=== PATIENT | male | born 1995 | race African-American/Black ===

== ENCOUNTER 2017-05-24 13:12 | Observation (INO) ==
[2017-05-24] MEDS ORDERED: KETOROLAC 30 MG/1 ML VIAL IV STA (14:02)
[2017-05-24] MEDS ORDERED: SODIUM CHLORIDE 0.9% 1,000 ML IV STA (14:02)
[2017-05-24] MEDS ORDERED: ONDANSETRON 4 MG/2 ML VIAL IV STA (14:02)
[2017-05-24] MEDS ORDERED: KETOROLAC 30 MG/1 ML VIAL ONE (14:08)
[2017-05-24] MEDS ORDERED: ONDANSETRON 4 MG/2 ML VIAL ONE (14:09)
[2017-05-24 14:14] LABS: Basophils # 0.1 10*3/uL (0.0-0.2); Basophils % 0.3 % (0.0-0.8); Hematocrit 42.4 VOL% (42.0-52.0); Hemoglobin 15.4 GM/DL (14.0-18.0); Immature Granulocytes % 0.4 %; Immature Granulocytes Absolute 0.08 #; Lymphocytes # 1.5 10*3/uL (1.4-4.0); Lymphocytes % 7.6 % (21.2-54.2); Mean Corpuscular HGB Conc 36.3 GM/DL (32-36); Mean Corpuscular Hemoglobin 30 PG (27-34); Mean Corpuscular Volume 81.9 FL (87-102); Mean Platelet Volume 10.7 FL (9.6-12.0); Monocytes # 1.2 10*3/uL (0.11-0.8); Monocytes % 6.2 % (1.7-12.7); Neutrophils # 16.5 10*3/uL (1.4-7.4); Neutrophils % 85.5 % (38.7-73.9); Platelet Count 246 T/CUMM (130-400); Red Blood Count 5.18 MC/CUMM (3.8-5.5); Red Cell Distribution Width 13.5 % (9.3-17.3); White Blood Count 19.3 T/CUMM (4-12)
[2017-05-24 14:47] LABS: Albumin 4.4 G/DL (3.4-5.0); Bilirubin,Total 0.9 MG/DL (0.2-1.0); Calcium 9.7 MG/DL (8.5-10.1); Osmolality,Calculated 274.7 MOS/KG (273-304); Potassium 4.1 MMOL/L (3.5-5.1); Total Protein 7.9 G/DL (6.4-8.3)
[2017-05-24 15:16] LABS: Apearance,Urine CLEAR (Clear); Bilirubin,Urine Negative (Negative); Blood, Urine Negative (Negative); Glucose,Urine (UA) Negative (Negative); Ketones,Urine 20 mg/dL (Negative); Mucus,Urine Occasional /LPF (Occasional); Nitrite,Urine Negative (Negative); Protein,Urine Negative; RBC,Urine 1 /HPF (0-4); Squamous Epithelial Cell,Urine Occasional /HPF (0-10); Urine Color Yellow (Yellow); Urine Urobilinogen < 2.0 EU/DL (0.2-1.0); WBC,Urine 1 /HPF (0-6)
[2017-05-24] MEDS ORDERED: ONDANSETRON 4 MG/2 ML VIAL IV PRN (16:43)
[2017-05-24] MEDS ORDERED: MORPHINE 2 MG/1 ML SYRINGE IV PRN (16:43)
[2017-05-24] MEDS ORDERED: ACETAMINOPHEN 500 MG TABLET PO PRN (16:45)
[2017-05-24] MEDS: SODIUM CHLORIDE 0.9% 1,000 ML IV SCH (18:17)
[2017-05-24] MEDS: ENOXAPARIN 40 MG/0.4 ML SYRINGE SUBCUT SCH (21:31)
[2017-05-25] MEDS: SODIUM CHLORIDE 0.9% 1,000 ML IV SCH ×3 (02:26→17:22)
[2017-05-25 03:58] LABS: Calcium 8.6 MG/DL (8.5-10.1); Osmolality,Calculated 273.5 MOS/KG (273-304); Potassium 3.5 MMOL/L (3.5-5.1)
[2017-05-25 04:33] LABS: Basophils # 0.1 10*3/uL (0.0-0.2); Basophils % 0.3 % (0.0-0.8); Hematocrit 36.5 VOL% (42.0-52.0); Hemoglobin 13.4 GM/DL (14.0-18.0); Immature Granulocytes % 0.4 %; Immature Granulocytes Absolute 0.08 #; Lymphocytes # 2.6 10*3/uL (1.4-4.0); Lymphocytes % 13.9 % (21.2-54.2); Mean Corpuscular HGB Conc 36.7 GM/DL (32-36); Mean Corpuscular Hemoglobin 30 PG (27-34); Mean Corpuscular Volume 81.8 FL (87-102); Mean Platelet Volume 11.9 FL (9.6-12.0); Monocytes # 1.6 10*3/uL (0.11-0.8); Monocytes % 8.5 % (1.7-12.7); Neutrophils # 14.2 10*3/uL (1.4-7.4); Neutrophils % 76.9 % (38.7-73.9); Platelet Count 216 T/CUMM (130-400); Red Blood Count 4.46 MC/CUMM (3.8-5.5); Red Cell Distribution Width 13.2 % (9.3-17.3); White Blood Count 18.4 T/CUMM (4-12)
[2017-05-25 05:42] LABS: Lymphocytes 12 % (20-55); Segmented Neutrophils 85 % (50-85)
[2017-05-25 05:50] LABS: Platelet Estimate Normal; Total Cells Counted 100
[2017-05-25] MEDS: ENOXAPARIN 40 MG/0.4 ML SYRINGE SUBCUT SCH (20:25)
[2017-05-26] MEDS: SODIUM CHLORIDE 0.9% 1,000 ML IV SCH ×3 (01:22→10:17)
[2017-05-26 04:17] LABS: Basophils % 0.4 % (0.0-0.8); Eosinophils % 0.3 % (0.00-10.9); Hematocrit 32.6 VOL% (42.0-52.0); Hemoglobin 12.1 GM/DL (14.0-18.0); Immature Granulocytes % 0.3 %; Immature Granulocytes Absolute 0.03 #; Lymphocytes # 3.3 10*3/uL (1.4-4.0); Lymphocytes % 29.1 % (21.2-54.2); Mean Corpuscular HGB Conc 37.1 GM/DL (32-36); Mean Corpuscular Hemoglobin 30 PG (27-34); Mean Corpuscular Volume 80.1 FL (87-102); Mean Platelet Volume 11.7 FL (9.6-12.0); Monocytes # 1.1 10*3/uL (0.11-0.8); Monocytes % 9.4 % (1.7-12.7); Neutrophils # 6.9 10*3/uL (1.4-7.4); Neutrophils % 60.5 % (38.7-73.9); Platelet Count 207 T/CUMM (130-400); Red Blood Count 4.07 MC/CUMM (3.8-5.5); Red Cell Distribution Width 13.2 % (9.3-17.3); White Blood Count 11.3 T/CUMM (4-12)
[2017-05-26 09:20] VITALS: BP 113/71
== END 2017-05-26 11:15 | disposition home or self-care (01) ==
LOC: N.EDINP 13:12 → N.ED 13:12 → N.EDINP 17:45 → N.3E 17:52
PROVIDERS: ADMIT Hospitalist; ATTEND Hospitalist